=== PATIENT | male | born 1940 | race Caucasian/White ===

== ENCOUNTER 2016-08-24 19:51 | Inpatient (IN) | payer OTHER ==
[~2016-08-24] VITALS: Ht 182.9 cm; Wt 95.5 kg
[~2016-08-24 19:51] MED LIST: ELIQUIS5 MG PO; GLUCOSAMINE CH1 EAC2 PO; L-LYSINE500 M1 PO; METOPROLOL TART50 MG PO; PACERONE200 MG PO; XARELTO20 MG PO
[2016-08-24 20:12] LABS: POTASSIUM 4.2 mEq/L (3.7-5.4)
[2016-08-24 20:19] LABS: BASOPHIL COUNT 0.1 K/uL (0-0.1); EOSINOPHIL (%) 0.9 % (0-5); EOSINOPHIL COUNT 0.1 K/uL (0-0.3); HEMATOCRIT 41.1 % (38.0-50.0); IMMATURE GRANULOCYTE (%) 0.5 % (0.0-0.7); INSTRUMENT ABS NEUTROPHIL CT 5.9 K/uL; MCH 31.1 PG (29.0-34.0); MCHC 34.1 G/DL (30.0-36.0); MCV 91.3 FL (86-99); MEAN PLAT.VOLUME 11.5 uM^3 (9.0-12.4); MONOCYTE (%) 7.9 % (3-12); MONOCYTE COUNT 0.6 K/uL (0-0.8); NEUTROPHIL (%) 76.7 % (45-76); NEUTROPHIL COUNT 5.9 K/uL (1.8-6.4); PLATELET COUNT 176 K/uL (156-360); RBC DIS.WIDTH-CV 13.4 % (11.8-14.6); RBC DIS.WIDTH-SD 45.2 % (39-53); WHITE BLOOD COUNT 7.7 K/uL (4.1-10.2)
[2016-08-24 20:34] LABS: AMYLASE 35 IU/L (1-118); CHLORIDE 106 mEq/L (99-109); POTASSIUM 4.2 mEq/L (3.7-5.4); SODIUM 139 mEq/L (136-147)
[2016-08-24 20:35] LABS: INTER. NORMALIZED RATIO 1.1; PROTHROMBIN TIME 11.4 (9.2-11.2); PTT 29.1 (25-32)
[2016-08-24 20:36] LABS: GLUCOSE 110 mg/dL (70-99)
[2016-08-24 20:37] LABS: ANION GAP 8 MEQ/L (2-14)
[2016-08-24 20:39] LABS: SERUM ETHYL ALCOHOL < 10 mg/dL
[2016-08-24 20:40] LABS: GFR ESTIMATE (CALCULATED) > 59 mL/min/
[2016-08-24 20:41] LABS: UREA NITROGEN (BUN) 15 mg/dL (9-23)
[2016-08-24 20:43] LABS: LIPASE 17 U/L (1.0-51.0)
[2016-08-24 20:45] LABS: TROP-I INTERPRETATION NEGATIVE; TROPONIN-I 0.01 ng/mL (0.0-0.30)
[2016-08-24 21:02] LABS: ADD MIUA? YES; BILIRUBIN NEGATIVE; BLOOD NEGATIVE; COLOR YELLOW ((YELLOW)); GLUCOSE (STRIP) NEGATIVE; KETONES NEGATIVE; LEUKOCYTES LARGE; NITRITE NEGATIVE; PROTEIN (STRIP) 30; SPECIFIC GRAVITY 1.035 (1.000-1.030); UROBILINOGEN 0.2 MG/DL (0.2-1.0)
[2016-08-24 21:12] LABS: BACTERIA NONE SEEN /HPF; EPITHELIAL CELLS RARE /HPF; MUCUS NONE SEEN /LPF; UCUL ADDED? YES; WHITE BLOOD CELLS TNTC /HPF (0-5)
[2016-08-24 21:15] LABS: AMPHETAMINE NEGATIVE (500 ng/mL); BARBITURATES NEGATIVE (200 ng/mL); BENZODIAZEPINES NEGATIVE (150 ng/mL); COCAINE NEGATIVE (150 ng/mL); INTERNAL CONTROLS VALID? YES; METHADONE NEGATIVE (200 ng/mL); METHAMPHETAMINE NEGATIVE (500 ng/mL); OPIATES (MORPHINE) NEGATIVE (100 ng/mL); OXYCODONE NEGATIVE (100 ng/mL); PHENCYCLIDINE NEGATIVE (25 ng/mL); PROPOXYPHENE NEGATIVE (300 ng/mL); THC CANNABINOIDS NEGATIVE (50 ng/mL); TRICYCLIC ANTIDEPRESSANTS NEGATIVE (300 ng/mL)
[2016-08-24] MEDS ORDERED: SINGULAIR10 MG PO (22:31)
[2016-08-24] MEDS ORDERED: ASPIRIN325 MG PO (22:31)
[2016-08-24] MEDS ORDERED: FLONASE16 G1 BOTH NARES (22:33)
[2016-08-24] MEDS ORDERED: VENTOLIN HFA18 GM IH (22:33)
[2016-08-25 01:32] LABS: HDL CHOLESTEROL 35 MG/DL (Desirable>=40); LDL CHOLESTEROL 121 mg/dL (Desirable<100); NON-HDL CHOLESTEROL 139 mg/dL (Desirable<160); TOTAL CHOLESTEROL 174 mg/dL (Desirable<200); TRIGLYCERIDES 92 MG/DL (Normal: <150)
[2016-08-25 05:00] VITALS: BP 160/79
[2016-08-25 06:19] LABS: HEMATOCRIT 39.5 % (38.0-50.0); MCH 31.4 PG (29.0-34.0); MCHC 34.2 G/DL (30.0-36.0); MCV 91.9 FL (86-99); RBC DIS.WIDTH-CV 13.7 % (11.8-14.6); WHITE BLOOD COUNT 7.9 K/uL (4.1-10.2)
[2016-08-25 07:46] LABS: PLATELET CLUMPS PRESENT - PLATELET COUNT APPEARS ADQ.
[2016-08-25 07:47] LABS: PLATELET COUNT UNABLE TO REPORT K/uL (156-360)
[2016-08-25 07:59] LABS: Estimated Average Glucose 134 mg/dL (70-123); HEMOGLOBIN A1c (GLYCOHEMOGLOB) 6.3 % HGB (Below 5.7)
[2016-08-25 08:15] VITALS: BP 132/60
[2016-08-25 12:20] VITALS: BP 158/78
[2016-08-25 16:00] VITALS: BP 135/68
[2016-08-25 19:41] VITALS: BP 130/66
[2016-08-25 23:17] VITALS: BP 143/72
[2016-08-26 03:58] VITALS: BP 126/62
[2016-08-26 05:53] LABS: HEMATOCRIT 40.4 % (38.0-50.0); MCH 30.7 PG (29.0-34.0); MCHC 33.4 G/DL (30.0-36.0); MCV 91.8 FL (86-99); RBC DIS.WIDTH-CV 13.5 % (11.8-14.6); RBC DIS.WIDTH-SD 45.8 % (39-53); WHITE BLOOD COUNT 7.5 K/uL (4.1-10.2)
[2016-08-26 06:19] LABS: PLATELET COUNT 156 K/uL (156-360)
[2016-08-26 06:25] LABS: ANION GAP 8 MEQ/L (2-14); CHLORIDE 104 MEQ/L (99-109); GFR ESTIMATE (CALCULATED) > 59 mL/min/; GLUCOSE 106 mg/dL (70-99); POTASSIUM 4.6 MEQ/L (3.7-5.4); SAMPLE HEMOLYSIS CHECK 2; SAMPLE ICTERIC CHECK 0; SAMPLE LIPEMIA CHECK 0; SODIUM 138 MEQ/L (136-147); UREA NITROGEN (BUN) 22 mg/dL (9-23)
[2016-08-26 06:28] LABS: TROP-I INTERPRETATION NEGATIVE; TROPONIN-I 0.02 ng/mL (0.0-0.30)
[2016-08-26 07:51] VITALS: BP 140/69
[2016-08-26] MEDS ORDERED: LOPRESSOR25 MG PO (08:46)
[2016-08-26] MEDS ORDERED: XARELTO20 MG PO (08:46)
[2016-08-26] MEDS ORDERED: ATORVASTATIN CA40 MG PO (08:48)
[2016-08-26 09:57] LABS: LYME DISEASE SEROLOGY SCREEN NEGATIVE (NEGATIVE)
[2016-08-26 10:51] LABS: HPCA INDEX 0.14
[2016-08-26 11:12] LABS: ANTI-HEPATITIS B CORE (TOTAL) Nonreactive; HBCT INDEX 0.18
[2016-08-27 11:30] LABS: ANTI-EPSTEIN-BARR NUCLEAR AG POSITIVE; ANTI-EPSTEIN-BARR VCA IGG POSITIVE; ANTI-EPSTEIN-BARR VCA IGM NEGATIVE
[2016-08-27 12:50] LABS: ANTI-NUCLEAR AB SCRN/RFLX(ANA) REACTIVE (NONREACTIVE)
[2016-08-27 12:55] LABS: SM (SMITH) ANTIBODY 17 U/mL (0-99); SS-A (SJOGREN'S) ANTIBODY 151 U/mL (0-99); SS-B (SJOGREN'S) ANTIBODY 9 U/mL (0-99)
[2016-08-27 12:56] LABS: CENTROMERE ANTIBODY 6 U/mL (0-99); HISTONE ANTIBODY 9 U/mL (0-99); JO-1 ANTIBODY 13 U/mL (0-99); SCL-70 (SCLERODERMA) ANTIBODY 157 U/mL (0-99)
== END 2016-08-26 10:57 | disposition home or self-care (01) | DRG 69 ==
LOC: EME → EDBD 19:51 → EME 19:51 → EDOF 23:43 → 4EAST 08-25 04:57
PROVIDERS: Emergency Medicine; Hospitalist; Nurse Practitioner Family; Specialist
DX: G45.9 Transient cerebral ischemic attack, unspecified (principal); N39.0 Urinary tract infection, site not specified; I11.0 Hypertensive heart disease with heart failure; I50.9 Heart failure, unspecified; I48.91 Unspecified atrial fibrillation; E78.5 Hyperlipidemia, unspecified; R00.1 Bradycardia, unspecified; Z87.891 Personal history of nicotine dependence
CPT/HCPCS: 70496; 70498; 70551; 71010; 80047; 80048; 80061; 81003; 82150; 83036; 83605; 83690; 84443; 84484; 85025; 85027; 85610; 85651; 85730; 86038; 86235; 86618; 86664; 86665; 86704; 86803; 86850; 86900; 86901; 87086; 92610 GN; 93005; 93880; 99202; 99281; 99285; G0480; J0696; J1940; J7050